=== PATIENT | male | born 1965 | race Caucasian/White ===

== ENCOUNTER 2020-07-29 00:16 | Inpatient (IN) | payer OTHER ==
[2020-07-29 03:52] VITALS: BP 144/86
[2020-07-29] MEDS ORDERED: PETROLATUM,WHITE 28 GM JELLY TP PRN (08:00)
[2020-07-29] MEDS ORDERED: NICOTINE 14 MG/24 HOUR PATCH TD PRN (08:00)
[2020-07-29] MEDS ORDERED: MAGNESIUM HYDROXIDE SUSPENSION 30 ML UDCUP PO PRN (08:00)
[2020-07-29] MEDS ORDERED: LOPERAMIDE HCL 2 MG CAPSULE PO PRN (08:00)
[2020-07-29] MEDS ORDERED: ACETAMINOPHEN 325 MG TABLET PO PRN (08:00)
[2020-07-29] MEDS ORDERED: GuaiFENesin/D-METHORPHAN [SUGAR-FREE] 200-20MG/10 ML SYRUP UDCUP PO PRN (08:00)
[2020-07-29] MEDS ORDERED: CloNIDine HCL 0.1 MG TABLET PO PRN (08:00)
[2020-07-29] MEDS ORDERED: DOCUSATE SODIUM 100 MG CAPSULE PO PRN (08:00)
[2020-07-29] MEDS ORDERED: ALBUTEROL SULFATE HFA 90 MCG/PUFF 8 GM INHALER IH PRN (08:00)
[2020-07-29] MEDS ORDERED: IBUPROFEN 400 MG TABLET PO PRN (08:00)
[2020-07-29] MEDS ORDERED: ONDANSETRON HCL 4 MG TABLET PO PRN (08:00)
[2020-07-29] MEDS ORDERED: MAG HYDROX/AL HYDROX/SIMETH ES 30 ML SUSPENSION UDCUP PO PRN (08:00)
[2020-07-29 09:22] VITALS: BP 139/93
[2020-07-29] MEDS ORDERED: DIVALPROEX SODIUM 250 MG DR TABLET PO ONE (11:00)
[2020-07-29] MEDS: LORazepam 2 MG TABLET PO PRN ×2 (11:29→17:29)
[2020-07-29] MEDS: DIVALPROEX SODIUM 250 MG DR TABLET PO SCH ×2 (11:54→16:32)
[2020-07-29 16:44] VITALS: BP 138/92
[2020-07-29] MEDS: ZOLPIDEM TARTRATE 10 MG TABLET PO PRN (21:07)
[2020-07-30 06:10] VITALS: BP 132/86
[2020-07-30 08:06] VITALS: BP 120/85
[2020-07-30] MEDS: DIVALPROEX SODIUM 250 MG DR TABLET PO SCH ×2 (08:07→16:05)
[2020-07-30 08:49] LABS: BASOPHILS % (AUTO) 0.4 % (0.0-2.0); EOSINOPHILS % (AUTO) 1.4 % (1.0-6.0); HEMATOCRIT 46.6 % (41-53); LYMPHOCYTES # (AUTO) 1.1 K/uL (1.0-4.8); LYMPHOCYTES % (AUTO) 14.2 % (22.0-44.0); MEAN CORPUSCULAR HEMOGLOBIN 31.7 pg (26.0-34.0); MEAN CORPUSCULAR HGB CONC 34.5 G/dL (31.0-37.0); MEAN CORPUSCULAR VOLUME 92 fL (80-100); MONOCYTES # (AUTO) 0.6 K/uL (0.1-1.0); MONOCYTES % (AUTO) 7.5 % (2.0-9.0); NEUTROPHILS # (AUTO) 6.2 K/uL (1.8-7.7); NEUTROPHILS % (AUTO) 76.5 % (40.0-70.0); PLATELET COUNT (AUTO) 218 K/uL (150-450); RED BLOOD CELL COUNT(AUTO) 5.07 MIL/uL (4.50-5.90); RED CELL DISTRIBUTION WIDTH 12.7 % (11.5-14.5)
[2020-07-30 09:18] LABS: ALANINE AMINOTRANSFERASE 45 U/L (12-78); ALBUMIN 3.9 g/dL (3.4-5.0); ALKALINE PHOSPHATASE 86 U/L (46-116); ANION GAP 8 mmol/L (8-16); ASPARTATE AMINOTRANSFERASE 25 U/L (15-37); BILIRUBIN,TOTAL 0.6 mg/dL (0.1-1.0); CALCIUM, TOTAL 8.8 mg/dL (8.8-10.5); CARBON DIOXIDE 26 mmol/L (22-29); CHLORIDE 105 mmol/L (98-107); CHOL/HDL RATIO 3.3 (4.2-7.3); CHOLESTEROL 191 mg/dL (131-200); CREATININE 1.07 mg/dL (0.60-1.30); GLOMERULAR FILTR. RATE CALC > 60 mL/min (>60); GLUCOSE,RANDOM 114 mg/dL (70-110); HDL CHOLESTEROL 58 mg/dL (40-60); LDL CHOL (CALC.) 120 mg/dL (0-130); POTASSIUM 3.4 mmol/L (3.5-5.1); SODIUM SERUM 139 mmol/L (136-145); THYROID STIMULATING HORMONE 2.01 uIU/mL (0.36-3.74); TRIGLYCERIDES 65 mg/dL (15-150); UREA NITROGEN, BLOOD 10 mg/dL (7-18)
[2020-07-30] MEDS ORDERED: POTASSIUM CHLORIDE 20 MEQ ER TABLET PO ONE (10:45)
[2020-07-30 13:18] VITALS: BP 134/81
[2020-07-30] MEDS: LORazepam 2 MG TABLET PO PRN (16:05)
[2020-07-30 17:06] VITALS: BP 134/85
[2020-07-30] MEDS: ZOLPIDEM TARTRATE 10 MG TABLET PO PRN (20:05)
[2020-07-31 02:05] VITALS: BP 128/77
[2020-07-31] MEDS: LORazepam 2 MG TABLET PO PRN ×3 (02:30→14:13)
[2020-07-31] MEDS: DIVALPROEX SODIUM 250 MG DR TABLET PO SCH ×2 (08:04→16:28)
[2020-07-31 08:10] VITALS: BP 136/90
[2020-07-31] MEDS ORDERED: POTASSIUM CHLORIDE 20 MEQ ER TABLET PO ONE (09:15)
[2020-07-31] MEDS: ZOLPIDEM TARTRATE 10 MG TABLET PO PRN (20:31)
[2020-08-01 04:45] VITALS: BP 132/80
[2020-08-01 08:11] VITALS: BP 135/77
[2020-08-01 08:28] LABS: ANION GAP 12 mmol/L (8-16); CALCIUM, TOTAL 9.4 mg/dL (8.8-10.5); CARBON DIOXIDE 23 mmol/L (22-29); CHLORIDE 103 mmol/L (98-107); CREATININE 1.07 mg/dL (0.60-1.30); GLOMERULAR FILTR. RATE CALC > 60 mL/min (>60); GLUCOSE,RANDOM 112 mg/dL (70-110); POTASSIUM 3.6 mmol/L (3.5-5.1); SODIUM SERUM 138 mmol/L (136-145); UREA NITROGEN, BLOOD 12 mg/dL (7-18)
[2020-08-01] MEDS: DIVALPROEX SODIUM 250 MG DR TABLET PO SCH (09:51)
[2020-08-01] MEDS: DIVALPROEX SODIUM 500 MG DR TABLET PO SCH (16:02)
[2020-08-01] MEDS: LORazepam 2 MG TABLET PO PRN ×2 (16:02→20:31)
[2020-08-01 16:03] VITALS: BP 137/89
[2020-08-01] MEDS: ZOLPIDEM TARTRATE 10 MG TABLET PO PRN (20:31)
[2020-08-02] MEDS: LORazepam 2 MG TABLET PO PRN ×4 (02:07→20:39)
[2020-08-02 03:41] VITALS: BP 133/80
[2020-08-02 08:08] VITALS: BP 132/80
[2020-08-02] MEDS: DIVALPROEX SODIUM 500 MG DR TABLET PO SCH ×2 (08:34→16:37)
[2020-08-02 16:05] VITALS: BP 124/74
[2020-08-02] MEDS: ZOLPIDEM TARTRATE 10 MG TABLET PO PRN (20:22)
[2020-08-03 05:00] VITALS: BP 128/85
[2020-08-03 08:33] LABS: APPEARANCE,URINE TURBID (CLEAR); GLUCOSE, URINE (UA) NEGATIVE (NEGATIVE); KETONES,URINE 15 mg/dL (NEGATIVE); LEUKOCYTE ESTERASE ,URINE NEGATIVE (NEGATIVE); NITRATE,URINE NEGATIVE (NEGATIVE); OCCULT BLOOD,URINE NEGATIVE (NEGATIVE); PROTEIN,URINE POS 1+ (NEGATIVE)
[2020-08-03] MEDS: DIVALPROEX SODIUM 500 MG DR TABLET PO SCH ×2 (08:41→16:08)
[2020-08-03] MEDS: LORazepam 2 MG TABLET PO PRN ×2 (08:41→16:13)
[2020-08-03 09:20] LABS: BILIRUBIN,URINE PRELIM. POSITIVE (NEGATIVE)
[2020-08-03 09:28] LABS: AMORPHOUS SEDIMENT,UR Many /LPF (None Seen); BACTERIA,URINE None Seen /HPF (None Seen); CALCIUM PHOSPHATE CRYSTALS,UR Rare /LPF (None Seen); RBC,URINE None Seen /HPF (0-2); WBC,URINE None Seen /HPF (0-5)
[2020-08-03 20:33] VITALS: BP 96/62
[2020-08-04 07:23] VITALS: BP 119/85
[2020-08-04] MEDS: DIVALPROEX SODIUM 500 MG DR TABLET PO SCH (09:00)
== END 2020-08-04 13:42 | disposition short-term general hospital (02) | DRG 885 ==
LOC: B3A 01:41
PROVIDERS: ADMIT Psychiatry & Neurology Child & Adolescent Psychiatry; ATTEND Psychiatry & Neurology Child & Adolescent Psychiatry
DX: F31.2 Bipolar disorder, current episode manic severe with psychotic features (principal); K21.9 Gastro-esophageal reflux disease without esophagitis; E87.6 Hypokalemia; Z79.899 Other long term (current) drug therapy
CPT/HCPCS: 84132; 84436; 84439; 84443; 87081